=== PATIENT | male | born 1960 | race African-American/Black ===

== ENCOUNTER 2019-04-12 15:18 | Emergency (ER) | payer BC ==
--- NOTE | 2019-04-12 15:31 | PDOC ---
Rapid Medical Evaluation Time Seen by Provider: 04/12/19 15:26 Medical Evaluation: Allergies Allergy/AdvReac Type Severity Reaction Status Date / Time No Known Allergies Allergy Verified 04/12/19 12:16 04/12/19 15:27 Pt c/o: right leg swelling increasing since yesterday, no injury Pt on brief exam: mild erythema and mild edema ( 1+) to lower aspect of right leg, 2+ pulses, FROM of RLE Pt ordered for: u/s Pt to proceed to the ED Discharge Disposition - Diagnosis Leg swelling - Referrals - Patient Instructions - Post Discharge Activity
[2019-04-12 16:20] VITALS: BP 134/72; PULSE 74; TEMP 98.2; BMI 24.4
--- NOTE | 2019-04-12 16:36 | PDOC ---
History of Present Illness - General Chief Complaint: Edema Stated Complaint: RT LEG SWOLLEN Time Seen by Provider: 04/12/19 15:26 History Source: Patient Exam Limitations: No Limitations Past History - Past Medical History Allergies/Adverse Reactions: Allergies Allergy/AdvReac Type Severity Reaction Status Date / Time No Known Allergies Allergy Verified 04/12/19 15:27 Home Medications: Ambulatory Orders Albuterol Sulfate Inhaler - [Ventolin Hfa Inhaler -] 2 inh PO PRN PRN 04/12/19 Cholecalciferol (Vitamin D3) [Vitamin D3] 2,000 unit PO DAILY 04/12/19 Multivitamins [Tab-A-Vit -] 1 tab PO DAILY 04/12/19 Anemia: No Asthma: No Cancer: No Cardiac Disorders: No CVA: No COPD: No CHF: No Dementia: No Diabetes: No GI Disorders: No Disorders: No HTN: No Hypercholesterolemia: No Kidney Stones: No Liver Disease: No Seizures: No Thyroid Disease: No - Surgical History Orthopedic Surgery: Yes (R patella fx in 2007) - Reproductive History Testicular Surgery: No - Immunization History Immunization Up to Date: Yes - Psycho Social/Smoking Cessation Hx Smoking History: Current every day smoker Have you smoked in the past 12 months: Yes Number of Cigarettes Smoked Daily: 10 Information on smoking cessation initiated: No 'Breaking Loose' booklet given: 08/22/17 Hx Alcohol Use: No Drug/Substance Use Hx: Yes (MARIJUANA) Substance Use Type: Cocaine, Heroin, Marijuana Hx Substance Use Treatment: Yes (2007) *Physical Exam - Vital Signs Last Vital Signs Temp Pulse Resp BP Pulse Ox 98.2 F 74 16 134/72 99 04/12/19 15:28 04/12/19 15:28 04/12/19 15:28 04/12/19 15:28 04/12/19 15:28 - Physical Exam General Appearance: No: Apparent Distress Extremity: positive: Pedal Edema (of RLE), Swelling (of RLE), Other (2+ DP and PT pulses of BLE). negative: Calf Tenderness Integumentary: positive: Normal Color. negative: Swelling, Ecchymosis Neurologic: positive: Alert, Normal Mood/Affect ED Treatment Course - RADIOLOGY Radiology Studies Ordered: Category Date Time Status ANKLE & FOOT-RIGHT* [RAD] Stat Radiology 04/12/19 16:30 Ordered LEG TIB/FIB-RIGHT [RAD] Stat Radiology 04/12/19 16:30 Ordered Medical Decision Making - Medical Decision Making 58-year-old male history of substance abuse was sent from [facility] for evaluation of right leg swelling. Patient mentions noticing the swelling for 1 to 2 days. Patient denies trauma to extremities. Patient denies fever, shortness of breath, chest pain, abdominal pain, vomiting. Ultrasound of right lower extremity was negative for DVT Provider at [facility] wants x-rays of extremity as well Pending results of x-rays 04/12/19 16:33 xrays negative patient stable for return to [facility] report given to JONNIE Hamilton and Dr. Briones 04/12/19 17:00 Discharge - Discharge Information Problems reviewed: Yes Clinical Impression/Diagnosis: Leg swelling Condition: Stable Disposition: HOME - Admission No - Additional Discharge Information Prescription Drug Monitoring Program (I-STOP) results: I-STOP not reviewed - Follow up/Referral - Patient Discharge Instructions Additional Instructions: Thank you for choosing [facility]. It was a pleasure taking care of you. Your ultrasound was negative for clot and your x-ray showed no evidence of fracture or other anomaly. Please follow-up with your regular doctor for further evaluation Return to the Emergency Department if your symptoms worsen or persist, you have fever, shortness of breath, chest pain or other concerning symptoms. - Post Discharge Activity
== END 2019-04-12 17:23 | disposition home or self-care (01) ==
LOC: JER 15:18
DX: F17.210 Nicotine dependence, cigarettes, uncomplicated (principal)
CPT/HCPCS: 73590-TC-RT-FY; 73610-TC-RT-FY; 73630-TC-RT-FY; 93971-TC; 99281-25

== ENCOUNTER 2019-04-12 18:19 | Inpatient (IN) | payer BC ==
[2019-04-12 12:33] VITALS: BMI 24.8
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
--- NOTE | 2019-04-12 16:09 | PN ---
Teaching Attending Note Name of Resident: Angelo Pierce ATTENDING PHYSICIAN STATEMENT I saw and evaluated the patient. I reviewed the resident's note and discussed the case with the resident. I agree with the resident's findings and plan as documented. SUBJECTIVE: 58 year old male here for detox from opiates , reports 6 bags of heroin daily via inhalation , denies IVDU , latest use 3 hrs prior to presenting at this facility , started using 15 years ago , denies OD . Reports R leg "tightness" for 1 day andn pain in the right foot with weight- bearing, states has been using a scooter for many days . 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 EXT : AUGUSTINE LE edema R > L , no calf tenderness neg [place] 0 COWS : 12 ( irritability , stomach cramps, anxiety , body aches , runny nose ) Vital Signs - 24 hr 04/12/19 12:23 Temperature 97.8 F Pulse Rate 80 Respiratory 20 Rate Blood Pressure 136/67 ASSESSMENT AND PLAN: Opioid dependence - Methadone detox. R foot pain - sent to [facility] for XR , pt returned from er 19:00 , US Doppler LE negative , R ankle / foot / tib- fib neg for frx, no new recommendations , pt states " leg is still swollen , still painful " , pt more irritable than on previous exam .
[2019-04-12] MEDS ORDERED: MENTHOL/PHENOL 1 EACH UD MM PRN (19:11)
[2019-04-12] MEDS ORDERED: MAGNESIUM HYDROX 2400MG/30ML ORAL SUSPENSION 30 ML CUP PO PRN (19:11)
[2019-04-12] MEDS ORDERED: MAGNESIUM CITRATE 300 ML BOTTLE PO PRN (19:11)
[2019-04-12] MEDS ORDERED: ACETAMINOPHEN 325 MG TABLET (FP) PO PRN ×2 (19:11)
[2019-04-12] MEDS ORDERED: NICOTINE POLACRILEX 2 MG GUM BUC PRN (19:11)
[2019-04-12] MEDS ORDERED: IBUPROFEN 400 MG TABLET (FP) PO PRN (19:11)
[2019-04-12] MEDS ORDERED: BISMUTH SUBSALICYLATE 524 MG/30 ML UD PO PRN (19:11)
[2019-04-12] MEDS ORDERED: cloNIDine HCL 0.1 MG TABLET PO PRN (19:13)
[2019-04-12] MEDS ORDERED: METHADONE HCL 10 MG TABLET (FOR DETOX USE ONLY) PO ONE (21:00)
[2019-04-12] MEDS: MELATONIN 5 MG TABLETS PO PRN ×2 (21:34→22:31)
[2019-04-12] MEDS: THIAMINE HCL 100 MG TABLET (FP) PO SCH (22:31)
[2019-04-13] MEDS ORDERED: METHADONE HCL 5 MG TABLET (FOR DETOX USE ONLY) PO ONE (10:00)
[2019-04-13 10:09] LABS: HEMATOCRIT 36.8 % (35.4-49); HEMOGLOBIN 12.5 GM/dL (11.7-16.9); MCH 31.1 pg (25.7-33.7); MEAN CELL VOLUME 91.3 fl (80-96); MEAN PLT VOLUME 8.1 fl (7.5-11.1); PLATELET COUNT 243 K/MM3 (134-434); RBC 4.03 M/mm3 (4.00-5.60); RDW 13.2 % (11.9-15.9); WHITE BLOOD COUNT 6.3 K/mm3 (4.0-10.0)
[2019-04-13 10:20] LABS: BILIRUBIN,TOTAL 0.9 mg/dL (0.2-1); BLOOD UREA NITROGEN 10.5 mg/dL (7-18); CALCIUM 8.5 mg/dL (8.5-10.1); TOT PROT 6.1 g/dl (6.4-8.2)
[2019-04-13] MEDS: CHOLECALCIFEROL (VIT D3) 1,000 UNIT (25 MCG) TABLET PO SCH (10:20)
[2019-04-13] MEDS: PRENATAL VITAMINS W/ FOLIC ACID TABLET (FP) PO SCH (10:21)
--- NOTE | 2019-04-13 12:13 | PN ---
S COWS - Scale Resting Pulse: 0= [place] 80 or Below Sweatin= Beads of Sweat on Face Restless Observation: 0= Sits Still Pupil Size: 0= Normal to Room Light Bone or Joint Aches: 2= Severe Diffuse Aches Runny Nose/ Eye Tearin= None GI Upset > 30mins: 0= None Tremor Observation of Outstretched Hands: 0= None Yawning Observation: 1= 1-2x During Session Anxiety or Irritability: 2=Irritable/Anxious Goose Flesh Skin: 0=Smooth Skin COWS Score: 8 S Progress Note (SOAP) Subjective: c/o anxiety, irritability, and sweats. Objective: 04/13/19 12:12 Vital Signs 04/13/19 04/13/19 06:58 09:27 Temperature 97 F L 99.3 F Pulse Rate 73 72 Respiratory 18 19 Rate Blood Pressure 133/71 136/79 Lab Results WBC 6.3 K/mm3 (4.0-10.0) 04/13/19 08:00 RBC 4.03 M/mm3 (4.00-5.60) 04/13/19 08:00 Hgb 12.5 GM/dL (11.7-16.9) 04/13/19 08:00 Hct 36.8 % (35.4-49) 04/13/19 08:00 MCV 91.3 fl (80-96) 04/13/19 08:00 MCHC 34.0 g/dl (32.0-35.9) 04/13/19 08:00 RDW 13.2 % (11.9-15.9) 04/13/19 08:00 Plt Count 243 K/MM3 (134-434) 04/13/19 08:00 Sodium 139 mmol/L (136-145) 04/13/19 08:00 Potassium 4.0 mmol/L (3.5-5.1) 04/13/19 08:00 Chloride 103 mmol/L (98-107) 04/13/19 08:00 Carbon Dioxide 29 mmol/L (21-32) 04/13/19 08:00 Anion Gap 7 MMOL/L (8-16) L 04/13/19 08:00 BUN 10.5 mg/dL (7-18) 04/13/19 08:00 Creatinine 1.0 mg/dL (0.55-1.3) 04/13/19 08:00 Random Glucose 86 mg/dL (74-106) 04/13/19 08:00 Calcium 8.5 mg/dL (8.5-10.1) 04/13/19 08:00 Labs noted. Assessment: 04/13/19 12:12 AOX3, in no acute respiratory distress. Full ROM, ambulating in the unit. Withdrawal symptoms. Plan: continue detox.
[2019-04-13] MEDS: ALBUTEROL SO4 8 GM HFA INHALER IH PRN ×2 (13:17→17:30)
[2019-04-13] MEDS: hydrOXYzine PAMOATE 25 MG CAPSULE (FP) PO PRN (17:31)
[2019-04-13] MEDS: MELATONIN 5 MG TABLETS PO PRN (22:06)
[2019-04-13] MEDS: THIAMINE HCL 100 MG TABLET (FP) PO SCH (22:06)
[2019-04-14] MEDS: METHOCARBAMOL 500 MG TABLET PO PRN (05:14)
[2019-04-14] MEDS: hydrOXYzine PAMOATE 25 MG CAPSULE (FP) PO PRN (05:17)
[2019-04-14] MEDS ORDERED: TRIMETHOBENZAMIDE HCL 200MG/2ML INJ IM ONE (06:19)
--- NOTE | 2019-04-14 06:48 | PN ---
[facility] Progress Note Note: Patient vomited x 1 Vital Signs Temperature 97.6 F 04/14/19 06:27 Pulse Rate 75 04/14/19 06:27 Respiratory Rate 18 04/14/19 06:27 Blood Pressure 164/85 04/14/19 06:27 O2 Sat by Pulse Oximetry (%) Action: Tigan 200mg intramuscular odered
[2019-04-14] MEDS ORDERED: cloNIDine HCL 0.1 MG TABLET PO ONE (07:41)
--- NOTE | 2019-04-14 07:46 | PN ---
S Progress Note Note: Patient's blood pressure is B/P 164/85. Vital Signs Temperature 97.6 F 04/14/19 06:27 Pulse Rate 75 04/14/19 06:27 Respiratory Rate 18 04/14/19 06:27 Blood Pressure 164/85 04/14/19 06:27 O2 Sat by Pulse Oximetry (%) Action: Clonidine 0.1mg tablet oral ordered
[2019-04-14] MEDS ORDERED: METHADONE HCL 10 MG TABLET (FOR DETOX USE ONLY) PO ONE (10:00)
[2019-04-14] MEDS: PRENATAL VITAMINS W/ FOLIC ACID TABLET (FP) PO SCH (10:12)
[2019-04-14] MEDS: CHOLECALCIFEROL (VIT D3) 1,000 UNIT (25 MCG) TABLET PO SCH (10:12)
[2019-04-14] MEDS: MAG HYDROX/AL HYDROX/SIMETH 30 ML UNIT-DOSE CUP PO PRN (10:13)
--- NOTE | 2019-04-14 11:05 | PN ---
BHS COWS - Scale Resting Pulse: 0= MI 80 or Below Sweatin= Chills/Flushing Restless Observation: 0= Sits Still Pupil Size: 0= Normal to Room Light Bone or Joint Aches: 0= None Runny Nose/ Eye Tearin= None GI Upset > 30mins: 1= Stomach Cramp Tremor Observation of Outstretched Hands: 0= None Yawning Observation: 1= 1-2x During Session Anxiety or Irritability: 2=Irritable/Anxious Goose Flesh Skin: 0=Smooth Skin COWS Score: 5 S Progress Note (SOAP) Subjective: c/o stomach cramp, anxiety, and irritability. Objective: 04/14/19 11:03 Vital Signs 04/14/19 04/14/19 06:27 09:44 Temperature 97.6 F 97.6 F Pulse Rate 75 65 Respiratory 18 18 Rate Blood Pressure 164/85 146/94 Lab Results WBC 6.3 K/mm3 (4.0-10.0) 04/13/19 08:00 RBC 4.03 M/mm3 (4.00-5.60) 04/13/19 08:00 Hgb 12.5 GM/dL (11.7-16.9) 04/13/19 08:00 Hct 36.8 % (35.4-49) 04/13/19 08:00 MCV 91.3 fl (80-96) 04/13/19 08:00 MCHC 34.0 g/dl (32.0-35.9) 04/13/19 08:00 RDW 13.2 % (11.9-15.9) 04/13/19 08:00 Plt Count 243 K/MM3 (134-434) 04/13/19 08:00 Sodium 139 mmol/L (136-145) 04/13/19 08:00 Potassium 4.0 mmol/L (3.5-5.1) 04/13/19 08:00 Chloride 103 mmol/L (98-107) 04/13/19 08:00 Carbon Dioxide 29 mmol/L (21-32) 04/13/19 08:00 Anion Gap 7 MMOL/L (8-16) L 04/13/19 08:00 BUN 10.5 mg/dL (7-18) 04/13/19 08:00 Creatinine 1.0 mg/dL (0.55-1.3) 04/13/19 08:00 Random Glucose 86 mg/dL (74-106) 04/13/19 08:00 Calcium 8.5 mg/dL (8.5-10.1) 04/13/19 08:00 Labs noted. Assessment: 04/14/19 11:04 AOX3, in no respiratory distress. Full ROM, ambulating in the unit. Withdrawal symptoms. For d/c tomorrow. Plan: continue detox. D/C in AM.
[2019-04-14] MEDS: MELATONIN 5 MG TABLETS PO PRN (21:12)
[2019-04-14] MEDS: THIAMINE HCL 100 MG TABLET (FP) PO SCH (21:12)
[2019-04-15] MEDS: hydrOXYzine PAMOATE 25 MG CAPSULE (FP) PO PRN ×2 (03:44→06:10)
[2019-04-15] MEDS: METHOCARBAMOL 500 MG TABLET PO PRN ×2 (03:44→10:08)
[2019-04-15] MEDS: MAG HYDROX/AL HYDROX/SIMETH 30 ML UNIT-DOSE CUP PO PRN (03:45)
[2019-04-15] MEDS ORDERED: METHADONE HCL 5 MG TABLET (FOR DETOX USE ONLY) PO ONE (06:00)
[2019-04-15] MEDS ORDERED: cloNIDine HCL 0.1 MG TABLET PO ONE (07:26)
--- NOTE | 2019-04-15 07:35 | PN ---
S Progress Note Note: Patient's blood pressure is B/P 154/94. Patient is symptomatic for withdrawal symptoms Vital Signs Temperature 98.0 F 04/15/19 06:13 Pulse Rate 62 04/15/19 06:13 Respiratory Rate 18 04/15/19 06:13 Blood Pressure 154/94 04/15/19 06:13 O2 Sat by Pulse Oximetry (%) Action: Clonidine 0.1mg tablet oral ordered
[2019-04-15 09:06] VITALS: BP 149/95; PULSE 77; TEMP 98.7
[2019-04-15] MEDS: PRENATAL VITAMINS W/ FOLIC ACID TABLET (FP) PO SCH (10:08)
[2019-04-15] MEDS: CHOLECALCIFEROL (VIT D3) 1,000 UNIT (25 MCG) TABLET PO SCH (10:08)
--- NOTE | 2019-04-15 18:34 | DS ---
[facility] Detox Discharge Summary Admission Date: 04/12/19 Discharge Date: 04/15/19 - History Present History: Cannabis Dependence, Cocaine Dependence, Opioid Dependence Additional Comments: PATIENT RETURNING HOME. PATIENT CONTEMPLATING REHAB ADMISSION FOR NEAR FUTURE. PATIENT ALSO CONTEMPLATING [facility] FOR ONGOING AFTERCARE TREATMENT. LIST OF LOCAL [facility] PROVIDERS GIVEN TO PATIENT PRIOR TO DISCHARGE FROM DETOX UNIT. PATIENT WAS DISCHARGED FROM DETOX UNIT IN STABLE MEDICAL CONDITION. Pertinent Past History: Nicotine Dependence. - Physical Exam Results Vital Signs: Vital Signs Temperature 98.7 F 04/15/19 09:05 Pulse Rate 77 04/15/19 09:05 Respiratory Rate 18 04/15/19 09:05 Blood Pressure 149/95 04/15/19 09:05 O2 Sat by Pulse Oximetry (%) Pertinent Admission Physical Exam Findings: WITHDRAWAL SYMPTOMS. Laboratory Tests 04/13/19 04/13/19 04/13/19 08:00 08:00 08:00 WBC 6.3 RBC 4.03 Hgb 12.5 Hct 36.8 MCV 91.3 MCH 31.1 MCHC 34.0 RDW 13.2 Plt Count 243 MPV 8.1 Sodium 139 Potassium 4.0 Chloride 103 Carbon Dioxide 29 Anion Gap 7 L BUN 10.5 Creatinine 1.0 Est GFR (CKD-EPI)AfAm 96.40 Est GFR (CKD-EPI)NonAf 83.18 Random Glucose 86 Calcium 8.5 Total Bilirubin 0.9 AST 40 H ALT 46 Alkaline Phosphatase 57 Total Protein 6.1 L Albumin 3.0 L RPR Titer Nonreactive LABS NOTED. - Treatment Hospital Course: Detox Protocol Followed, Detoxed Safely, Responded well, Discharged Condition Good Patient has Accepted a Rehab Referral to: PT. WILL CONSIDER FOR FUTURE; ALSO CONSIDERING [facility] - Medication Discharge Medications: Ambulatory Orders Albuterol Sulfate Inhaler - [Ventolin Hfa Inhaler -] 2 inh PO PRN PRN 04/12/19 Cholecalciferol (Vitamin D3) [Vitamin D3] 2,000 unit PO DAILY 04/12/19 Multivitamins [Tab-A-Vit -] 1 tab PO DAILY 04/12/19 - Diagnosis (1) Cannabis dependence Status: Acute (2) Cocaine dependence Status: Acute Qualifiers: Substance use status: uncomplicated Qualified Code(s): F14.20 - Cocaine dependence, uncomplicated (3) Nicotine dependence Status: Acute Qualifiers: Nicotine product type: cigarettes Substance use status: in withdrawal Qualified Code(s): F17.213 - Nicotine dependence, cigarettes, with withdrawal (4) Opioid dependence with withdrawal Status: Acute - AMA Did Patient Leave Against Medical Advice: No BHS COWS - Scale Resting Pulse: 0= [place] 80 or Below Sweatin= No chills or Flushing Restless Observation: 1= Difficult to Sit Still Pupil Size: 0= Normal to Room Light Bone or Joint Aches: 1= Mild Discomfort Runny Nose/ Eye Tearin= None GI Upset > 30mins: 0= None Tremor Observation of Outstretched Hands: 0= None Yawning Observation: 0= None Anxiety or Irritability: 2=Irritable/Anxious Goose Flesh Skin: 0=Smooth Skin COWS Score: 4
== END 2019-04-15 11:09 | disposition home or self-care (01) | DRG 897 ==
LOC: YASAS 18:19 → Y3N 19:48
PROVIDERS: ADMIT Allergy & Immunology; ATTEND Allergy & Immunology
PROC: HZ2ZZZZ Detoxification Services for Substance Abuse Treatment (ICD-10-PCS; principal; 2019-04-12)
DX: F11.23 Opioid dependence with withdrawal (principal); F14.20 Cocaine dependence, uncomplicated; F12.20 Cannabis dependence, uncomplicated; F17.210 Nicotine dependence, cigarettes, uncomplicated; R03.0 Elevated blood-pressure reading, without diagnosis of hypertension; M79.671 Pain in right foot
CPT/HCPCS: 36415; 80053; 85027; 86593; J0735